=== PATIENT | female | born 1985 | race Two or more races ===

== ENCOUNTER → 2019-11-10 10:22 | Outpatient (CLI) | payer OTHER ==
[~2019-11-10 10:22] MED LIST: ALTACE5 MG; FOCALIN XR15 MG; FOCALIN XR20 MG; XANAX XR0.5 MG
== END | disposition home or self-care (01) ==
LOC: LAB 10:22
DX: J11.1 Influenza due to unidentified influenza virus with other respiratory manifestations (principal); J20.0 Acute bronchitis due to Mycoplasma pneumoniae

== ENCOUNTER 2019-11-28 09:57 | Outpatient (CLI) | payer OTHER | END 2019-11-28 10:03 | disposition home or self-care (01) | LOC: LAB 09:57 | DX: J11.1 Influenza due to unidentified influenza virus with other respiratory manifestations (principal) ==

== ENCOUNTER → 2025-09-25 | Outpatient (CLI) | payer OTHER ==
[~2025-09-25] MED LIST changes: +FLONASE ALLERG9.9 ML; +LABETALOL HCL100 MG PO; +LEXAPRO5 MG PO; +PRENATA CHEWAB1 EACH PO; +WIXELA 250-501 EACH PO; +ZYRTEC10 M3 PO
== END | disposition home or self-care (01) ==
LOC: NST 11:00
PROVIDERS: ATTEND Obstetrics & Gynecology Gynecology
DX: Z34.82 Encounter for supervision of other normal pregnancy, second trimester (principal)

== ENCOUNTER 2025-09-28 13:22 | Outpatient (CLI) | payer OTHER ==
[~2025-09-28] VITALS: Ht 167.6 cm; Wt 143.8 kg
[~2025-09-28 13:22] MED LIST changes: -AUGMENTIN XR 11 EACH PO; -FLONASE ALLERG9.9 ML; -LABETALOL HCL100 MG PO; -LEXAPRO5 MG PO; -PRENATA CHEWAB1 EACH PO; -WIXELA 250-501 EACH PO; -ZYRTEC10 M3 PO
[2025-09-28 13:30] VITALS: BP 119/73
[2025-09-28] MEDS ORDERED: PRENATA CHEWAB1 EACH PO (14:59)
[2025-09-28] MEDS ORDERED: ZYRTEC10 M3 PO (15:00)
[2025-09-28] MEDS ORDERED: LABETALOL HCL100 MG PO (15:00)
[2025-09-28] MEDS ORDERED: WIXELA 250-501 EACH PO (15:00)
[2025-09-28] MEDS ORDERED: LEXAPRO5 MG PO (15:02)
[2025-09-28] MEDS ORDERED: FLONASE ALLERG9.9 ML (15:02)
[2025-09-28] MEDS ORDERED: RINGERS SOLUTION,LACTATED 1,000 ML IV SCH (15:15)
[2025-09-28 15:27] VITALS: BP 109/70
[2025-09-28 15:35] LABS: BASO % 0.5 % (0.1-1.2); EOS # 0.23 (0.04-0.54); EOS % 1.5 % (0.7-7.0); LYMPH # 1.70 (1.18-3.74); LYMPH % 11.0 % (19.3-53.1); MEAN PLATELET VOLUME 9.80 fl (9.4-12.4); MONO # 1.12 (0.24-0.82); MONO % 7.2 % (4.7-12.5); NEUT # 12.22 (1.56-6.13); NEUT % 79.0 % (34.0-71.1); RED CELL DISTRIBUTION WIDTH 14.1 % (11.6-14.4)
[2025-09-28 15:55] LABS: COVID-19 AG NEGATIVE (NEGATIVE)
[2025-09-28 16:14] LABS: ALT/SGPT 12.0 U/L (12-78); AST/SGOT 10.0 U/L (15-37); BILIRUBIN TOTAL 0.17 mg/dL (0.3-1.2); BUN CREA RATIO 21.0 (7.0-25.0); CREATININE SERUM 0.52 mg/dL (0.55-1.02); GFR 131.97; GLOBULINA 3.6 G/DL (2.4-3.5); GLUCOSE FASTING 70.0 mg/dL (65-100); OSMOLALITY SERUM 275.0 MOSM/KG (275-295)
[2025-09-28 18:02] VITALS: BP 109/70
== END 2025-09-28 16:42 | disposition home or self-care (01) ==
LOC: OBS/DEL 13:22
PROVIDERS: ATTEND Obstetrics & Gynecology
DX: O26.813 Pregnancy related exhaustion and fatigue, third trimester (principal); R05.8 Other specified cough; R09.81 Nasal congestion; Z3A.27 27 weeks gestation of pregnancy

== ENCOUNTER → 2025-09-28 | Emergency (ER) | payer OTHER ==
[~2025-09-28] VITALS: Ht 167.6 cm; Wt 143.8 kg
[~2025-09-28] MED LIST changes: +AUGMENTIN XR 11 EACH PO
[2025-09-28 12:05] VITALS: BP 168/92; O2SAT 98
== END | disposition home or self-care (01) ==
LOC: ER 10:36
DX: K52.89 Other specified noninfective gastroenteritis and colitis (principal)

== ENCOUNTER 2025-10-02 17:44 | Emergency (ER) | payer OTHER ==
[~2025-10-02] VITALS: Ht 167.6 cm; Wt 143.8 kg
[~2025-10-02 17:44] MED LIST changes: +FLONASE ALLERG9.9 ML; +LABETALOL HCL100 MG PO; +LEXAPRO5 MG PO; +PRENATA CHEWAB1 EACH PO; +WIXELA 250-501 EACH PO; +ZYRTEC10 M3 PO
[2025-10-02] MEDS ORDERED: AUGMENTIN XR 11 EACH PO (20:17)
== END 2025-10-02 21:24 | disposition home or self-care (01) ==
LOC: ER 17:44
DX: Z33.1 Pregnant state, incidental (principal); J45.909 Unspecified asthma, uncomplicated; Z88.1 Allergy status to other antibiotic agents

== ENCOUNTER → 2025-10-14 | Outpatient (CLI) | payer OTHER ==
[~2025-10-14] MED LIST changes: +AUGMENTIN XR 11 EACH PO
== END | disposition home or self-care (01) ==
LOC: NST 16:16
PROVIDERS: ATTEND Obstetrics & Gynecology Maternal & Fetal Medicine
DX: Z34.83 Encounter for supervision of other normal pregnancy, third trimester (principal)

== ENCOUNTER 2025-11-20 13:19 | Outpatient (CLI) | payer OTHER | END 2025-11-20 14:43 | disposition home or self-care (01) | LOC: NST 13:19 | PROVIDERS: ATTEND Obstetrics & Gynecology Maternal & Fetal Medicine | DX: Z34.83 Encounter for supervision of other normal pregnancy, third trimester (principal) ==

== ENCOUNTER 2025-11-24 11:12 | Outpatient (CLI) | payer OTHER | END 2025-11-24 13:30 | disposition home or self-care (01) | LOC: NST 11:12 | PROVIDERS: ATTEND Obstetrics & Gynecology | DX: Z34.83 Encounter for supervision of other normal pregnancy, third trimester (principal) ==